=== PATIENT | male | born 1960 | race Caucasian/White ===

== ENCOUNTER → 2017-08-17 07:53 | Outpatient (CLI) | payer BC, SELFPAY ==
[2017-08-17 08:34] LABS: Hemoglobin A1C 6.3 % (0.0-7.0)
[2017-08-17 09:04] LABS: Alanine Aminotransferase 40 U/L (12-78); Albumin Level 3.9 gm/dL (3.4-5.0); Albumin/Globulin Ratio 1.1 (1.1-1.8); Alkaline Phosphatase 73 U/L (46-116); Anion Gap 12.3 mEq/L (5-15); Aspartate Amino Transferase 24 U/L (15-37); Bilirubin,Total 0.4 mg/dL (0.2-1.0); Blood Urea Nitrogen 15 mg/dL (7-18); Carbon Dioxide 27 mmol/L (21.0-32.0); Chloride 102 mmol/L (98-107); Chol/HDL Ratio 6.1 (1-3.5); Cholesterol 227 mg/dL (140-200); Creatinine,Serum 1.02 mg/dL (0.70-1.30); Estimated Glomerular Filt Rate > 60 ml/min (>60); GFR (African American) > 60 ML/MIN (>60); Globulin 3.4 gm/dl (1.3-3.2); Glucose 124 mg/dL (74-106); HDL Cholesterol 37 mg/dL (27-67); LDL Cholesterol 115 mg/dL (0-130); Potassium 4.3 mmoL/L (3.5-5.1); Sodium 137 mmol/L (136-145); Thyroid Stimulating Hormone 2.37 uIU/ml (0.358-3.740); Total Protein,Serum 7.3 gm/dL (6.4-8.2); Triglycerides 373 mg/dL (30-200); VLDL Cholesterol 75 mg/dL (0-40)
[2017-08-21 21:44] LABS: Creatinine, Urine 55.7 mg/dL (Not Estab.); Microalbumin, Urine 28.4 ug/mL (Not Estab.)
== END ==
PROVIDERS: PCP Family Medicine; Visit Provider Family Medicine
DX: E11.9 Type 2 diabetes mellitus without complications (principal); E78.2 Mixed hyperlipidemia
CPT/HCPCS: 36415; 80053; 80061; 82043; 83036; 84443

== ENCOUNTER → 2018-07-23 07:33 | Outpatient (CLI) | payer BC, SELFPAY ==
[2018-07-23 08:44] LABS: Hemoglobin A1C 6.2 % (0.0-7.0)
[2018-07-23 08:49] LABS: Creatinine,Urine Random 58 mg/dL (20-320)
[2018-07-23 09:05] LABS: Alanine Aminotransferase 49 U/L (12-78); Albumin Level 3.9 gm/dL (3.4-5.0); Albumin/Globulin Ratio 1.1 (1.1-1.8); Alkaline Phosphatase 85 U/L (46-116); Anion Gap 14.4 mEq/L (5-15); Aspartate Amino Transferase 21 U/L (15-37); Bilirubin,Total 0.4 mg/dL (0.2-1.0); Blood Urea Nitrogen 15 mg/dL (7-18); Carbon Dioxide 26 mmol/L (21.0-32.0); Chloride 104 mmol/L (98-107); Chol/HDL Ratio 4.3 (1-3.5); Cholesterol 153 mg/dL (140-200); Creatinine,Serum 0.92 mg/dL (0.70-1.30); Estimated Glomerular Filt Rate 85 ml/min (>60); GFR (African American) 103 ML/MIN (>60); Globulin 3.4 gm/dl (1.3-3.2); Glucose 127 mg/dL (74-106); HDL Cholesterol 36 mg/dL (27-67); LDL Cholesterol 59 mg/dL (0-130); Potassium 4.4 mmoL/L (3.5-5.1); Sodium 140 mmol/L (136-145); Thyroid Stimulating Hormone 2.17 uIU/ml (0.358-3.740); Total Protein,Serum 7.3 gm/dL (6.4-8.2); Triglycerides 289 mg/dL (30-200); VLDL Cholesterol 58 mg/dL (0-40)
[2018-07-24 10:41] LABS: Microalbumin, Urine 25.6 ug/mL (Not Estab.)
== END ==
PROVIDERS: Visit Provider Family Medicine
DX: E11.9 Type 2 diabetes mellitus without complications (principal); E78.2 Mixed hyperlipidemia
CPT/HCPCS: 36415; 80053; 80061; 82043; 82570; 83036; 84443

== ENCOUNTER → 2019-08-27 08:01 | Outpatient (CLI) | payer BC, SELFPAY ==
[2019-08-27 11:26] LABS: Alanine Aminotransferase 38 U/L (12-78); Albumin Level 3.6 gm/dL (3.4-5.0); Albumin/Globulin Ratio 1.1 (1.1-1.8); Alkaline Phosphatase 73 U/L (46-116); Amylase 14 U/L (25-115); Anion Gap 11.7 mEq/L (5-15); Bilirubin,Total 0.3 mg/dL (0.2-1.0); Blood Urea Nitrogen 16 mg/dL (7-18); Calcium 9.1 mg/dL (8.5-10.1); Carbon Dioxide 29 mmol/L (21.0-32.0); Chloride 100 mmol/L (98-107); Chol/HDL Ratio 3.5 (1-3.5); Cholesterol 133 mg/dL (140-200); Creatinine,Serum 0.91 mg/dL (0.70-1.30); Estimated Glomerular Filt Rate 86 ml/min (>60); GFR (African American) 104 ML/MIN (>60); Globulin 3.3 gm/dl (1.3-3.2); Glucose 115 mg/dL (74-106); HDL Cholesterol 38 mg/dL (27-67); LDL Cholesterol 53 mg/dL (0-130); Lipase 107 u/L (73-393); Potassium 4.7 mmoL/L (3.5-5.1); Sodium 136 mmol/L (136-145); Thyroid Stimulating Hormone 2.85 uIU/ml (0.358-3.740); Total Protein,Serum 6.9 gm/dL (6.4-8.2); Triglycerides 208 mg/dL (30-200); VLDL Cholesterol 42 mg/dL (0-40)
[2019-08-27 11:59] LABS: Aspartate Amino Transferase 30 U/L (15-37)
[2019-08-28 12:40] LABS: Microalbumin, Urine 52.9 ug/mL (Not Estab.)
== END ==
PROVIDERS: Visit Provider Family Medicine
DX: E11.9 Type 2 diabetes mellitus without complications (principal); E78.2 Mixed hyperlipidemia; R10.13 Epigastric pain
CPT/HCPCS: 36415; 80053; 80061; 82043; 82150; 82570; 83690; 84443

== ENCOUNTER → 2019-09-01 09:15 | Outpatient (CLI) | payer BC, SELFPAY ==
--- NOTE | 2019-09-01 09:23 | US_ITS ---
PROCEDURE: US ABDOMEN LIMITED CLINICAL INDICATION: EPIGASTRIC PAIN COMPARISON: No exams were available for comparison FINDINGS: PANCREAS: Unremarkable. No obvious mass or abnormal fluid collection. No ductal dilatation LIVER: There is diffuse fatty infiltration of the liver without a focal lesion. The there is no biliary ductal dilatation RIGHT KIDNEY: A 2.1 centimeter cortical cyst of the upper pole of the right kidney is noted. There is no solid renal lesion or obstruction. GALLBLADDER: There is cholelithiasis with up to 4.5 millimeters wall thickening of the gallbladder. Acute versus chronic cholecystitis should be considered. Radionuclide HIDA scan may be useful to further evaluate this patient. Common bile duct measures 2.5 millimeters. IMPRESSION: Cholelithiasis with gallbladder wall thickening consistent with acute versus chronic cholecystitis. Fatty infiltration of the liver. Dictated by: Yvon Nelson 09/01/2019 13:18 Electronically signed by Yvon Nelson in [place] 09/01/2019 13:18
== END ==
PROVIDERS: PCP Family Medicine; Visit Provider Family Medicine
DX: R10.13 Epigastric pain (principal)
CPT/HCPCS: 76705

== ENCOUNTER 2019-09-18 11:15 | Outpatient (RCR) | payer BC, SELFPAY | END 2019-09-18 11:45 | disposition home or self-care (01) | LOC: PT 11:15 | PROVIDERS: Visit Provider Family Medicine | DX: S83.411A Sprain of medial collateral ligament of right knee, initial encounter (principal) | CPT/HCPCS: 97760 ==

== ENCOUNTER → 2021-07-14 16:22 | Outpatient (CLI) | payer BC, SELFPAY | PROVIDERS: PCP Family Medicine; Visit Provider Nurse Practitioner | DX: U07.1 COVID-19 (principal) | CPT/HCPCS: C9803; U0003; U0005 ==

== ENCOUNTER → 2021-08-16 07:19 | Outpatient (CLI) | payer BC, SELFPAY ==
[2021-08-16 08:13] LABS: Alanine Aminotransferase 48 U/L (12-78); Albumin Level 4.5 g/dl (3.5-5.0); Albumin/Globulin Ratio 1.6 (1.1-1.8); Alkaline Phosphatase 57 U/L (38-126); Anion Gap 11.6 mEq/L (5-15); Aspartate Amino Transferase 42 U/L (17-59); Bilirubin,Total 0.6 mg/dl (0.2-1.3); Blood Urea Nitrogen 16 mg/dl (9-20); Calcium 9.3 mg/dl (8.4-10.2); Carbon Dioxide 30 mmol/L (22.0-30.0); Chloride 100 mmol/L (98-107); Cholesterol 160 mg/dl (140-200); Estimated Glomerular Filt Rate 87 ml/min (>60); GFR (African American) 105 ML/MIN (>60); Globulin 2.8 g/dL (1.3-3.2); Glucose 143 mg/dl (74-100); HDL Cholesterol 40 mg/dl (40-60); Potassium 4.6 mmoL/L (3.5-5.1); Sodium 137 mmol/L (136-145); Total Protein,Serum 7.3 g/dl (6.3-8.2); Triglycerides 241 mg/dl (30-150); VLDL Cholesterol 48 mg/dL (0-40)
[2021-08-16 08:17] LABS: Creatinine,Urine Random 65 mg/dL (Not Estab.)
[2021-08-16 08:21] LABS: Microalbumin/Creatinine Ratio 52.6
[2021-08-16 08:24] LABS: Direct LDL Cholesterol 87.23 mg/dL (100-129)
[2021-08-16 08:43] LABS: Thyroid Stimulating Hormone 4.94 uIU/mL (0.465-4.68)
[2021-08-16 09:33] LABS: Hemoglobin A1C 6.8 % (4.0-6.0)
== END ==
PROVIDERS: Visit Provider Family Medicine
DX: E11.9 Type 2 diabetes mellitus without complications (principal); E78.2 Mixed hyperlipidemia; Z79.84 Long term (current) use of oral hypoglycemic drugs
CPT/HCPCS: 36415; 80053; 80061; 82043; 82570; 83036; 84443

== ENCOUNTER → 2023-05-28 13:37 | Outpatient (CLI) | payer BC, SELFPAY ==
[2023-05-28 13:44] LABS: Adenovirus,PCR Not Detected (NotDetected); Coronavirus 19, PCR Not Detected (NotDetected); Coronavirus 229E Not Detected (NotDetected); Coronavirus NL63 Not Detected (NotDetected); Coronavirus OC43 Not Detected (NotDetected); Coronovirus HKU1,PCR Not Detected (NotDetected); Human Metapneumovirus Not Detected (NotDetected); Influenza A, PCR Not Detected (NotDetected); Influenza AH1, 2009 Not Detected (NotDetected); Influenza AH1, PCR Not Detected (NotDetected); Influenza AH3,PCR Not Detected (NotDetected); Influenza B, PCR Not Detected (NotDetected); Parainfluenza 1, PCR Not Detected (NotDetected); Parainfluenza 2, PCR Not Detected (NotDetected); Parainfluenza 3, PCR Not Detected (NotDetected); Parainfluenza 4, PCR Not Detected (NotDetected); Respiratory Syncytial Virus Not Detected (NotDetected); Rhinovirus/Enterovirus Not Detected (NotDetected)
== END ==
PROVIDERS: PCP Family Medicine; Visit Provider Family Medicine
DX: J06.9 Acute upper respiratory infection, unspecified (principal)
CPT/HCPCS: 87632; 87635

== ENCOUNTER → 2023-06-04 11:47 | Outpatient (CLI) | payer BC, SELFPAY ==
[2023-06-04 12:43] LABS: Basophils # 0.1 K/mm3 (0-0.2); Basophils % 1.1 % (0.1-2.0); Eosinophils # 0.2 K/mm3 (0.0-0.4); Eosinophils % 2.3 % (0.1-12.0); Hematocrit 47.4 % (42.0-52.0); Hemoglobin 16.5 g/dL (14.1-18.0); Lymphocytes % 26.2 % (10-50); Mean Corpuscular HGB Conc 34.8 g/dL (31.8-35.4); Mean Corpuscular Hemoglobin 34.3 pg (27.0-31.2); Mean Corpuscular Volume 98.8 fl (80-94); Mean Platelet Volume 10.5 fl (7.4-10.4); Monocytes # 0.7 K/mm3 (0.1-1.0); Monocytes % 8.6 % (1.7-9.3); Neutrophils # 4.8 K/mm3 (1.8-7.8); Neutrophils % 61.8 % (37.0-80.0); Platelet Count 229 K/mm3 (142-424); Red Cell Distribution Width 15.6 % (11.5-17.5); White Blood Count 7.8 K/mm3 (4.8-10.8)
[2023-06-04 12:51] LABS: Activated Partial Thrombo Time 33.3 seconds (22.8-30.6); Prothrombin Time 10.8 seconds (10.1-12.5)
[2023-06-04 13:06] LABS: Hemoglobin A1C 6.4 % (4.0-6.0)
[2023-06-04 13:30] LABS: Chloride 103 mmol/L (98-107); Potassium 4.5 mmoL/L (3.5-5.1); Sodium 133 mmol/L (136-145)
[2023-06-04 13:32] LABS: Amylase 48 U/L (30-110); Blood Urea Nitrogen 16 mg/dl (9-20); Estimated Glomerular Filt Rate 99 ml/min (>60); GFR (African American) 119 ML/MIN (>60)
[2023-06-04 13:33] LABS: Albumin Level 3.6 g/dl (3.5-5.0); Alkaline Phosphatase 533 U/L (38-126); Anion Gap 12.5 mEq/L (5-15); Bilirubin,Total 12.7 mg/dl (0.2-1.3); Calcium 8.6 mg/dl (8.4-10.2); Carbon Dioxide 22 mmol/L (22.0-30.0); Globulin 3.7 g/dL (1.3-3.2); Glucose 178 mg/dl (74-100); Lipase 474 U/L (23-300); Total Protein,Serum 7.3 g/dl (6.3-8.2)
[2023-06-04 14:55] LABS: 25-OH Vitamin D, Total 51.6 ng/mL (30-100)
[2023-06-04 14:56] LABS: Alanine Aminotransferase 2247 U/L (12-78)
[2023-06-04 15:37] LABS: Vitamin B12 983 pg/mL (239-931)
[2023-06-04 15:40] LABS: Aspartate Amino Transferase 3000 U/L (17-59)
[2023-06-06 05:36] LABS: HBsAg Screen Positive (Negative); HCV Ab Non Reactive (Non Reactive); Hep A Ab, IGM Negative (Negative); Hep B Core Ab, IgM Positive (Negative)
== END ==
PROVIDERS: PCP Family Medicine; Visit Provider Family Medicine
DX: R53.83 Other fatigue (principal); R17 Unspecified jaundice; K80.20 Calculus of gallbladder without cholecystitis without obstruction; E11.9 Type 2 diabetes mellitus without complications; E66.9 Obesity, unspecified; Z68.33 Body mass index [BMI] 33.0-33.9, adult; Z79.84 Long term (current) use of oral hypoglycemic drugs
CPT/HCPCS: 36415; 80053; 80074; 82150; 82306; 82607; 83036; 83690; 85025; 85610; 85730

== ENCOUNTER → 2023-06-07 08:01 | Outpatient (CLI) | payer BC, SELFPAY ==
--- NOTE | 2023-06-07 08:08 | CT_ITS ---
FINAL REPORT CLINICAL HISTORY: JAUNDICE,ELEVATED LFT,ELEVATED LIPASE COMPARISON: None FINDINGS: CT OF THE ABDOMEN AND PELVIS WITH CONTRAST Axial CT images of the abdomen and pelvis were obtained after the administration of IV contrast. Coronal and sagittal reformatted images were also obtained and reviewed. This study was performed with techniques to keep radiation doses as low as reasonably achievable (ALARA). Individualized dose reduction techniques using automated exposure control or adjustment of mA and/or kV according to the patient's size were employed. Abdomen: The lung bases are clear. The heart is normal in size. Fatty infiltration of the liver is present. There is a less than 1 cm right hepatic low-density, which is not accurately characterized without intravenous contrast administration, but may represent a hepatic cyst. There is a large gallstone in the gallbladder with mild wall thickening, cholecystitis not excluded. There are several mildly enlarged portal and portocaval nodes, that are nonspecific but may be reactive. The spleen is unremarkable. No adrenal mass is present. The pancreas has an unremarkable appearance. Bilateral renal cysts are present. The aorta is normal in caliber. There is no free fluid or adenopathy. No mass or abnormal fluid collection is seen. Pelvis: The appendix is not well-visualized. The urinary bladder is unremarkable. There is diverticulosis of the sigmoid colon without evidence of acute inflammatory change. There is also wall thickening at the junction of the rectum and sigmoid colon, which may be secondary to inflammatory change or neoplasm. There is no evidence of mass or adenopathy. There is no evidence of bowel obstruction. There is a small umbilical hernia containing fat. There are bilateral inguinal hernias, small, that also contain fat. IMPRESSION: Large gallstone with mild wall thickening of the gallbladder, and cholecystitis is not excluded. Several mildly enlarged portal and portocaval nodes, nonspecific but may be reactive. There is wall thickening at the junction of the rectum and sigmoid colon, that may be inflammatory or neoplastic, and would correlate with colonoscopy. There is a less than 1 cm right hepatic lobe density, which may represent a cyst although this lesion is not accurately characterized without use of intravenous contrast. Reviewed, Interpreted and Dictated by Juan Luis Rubi III, MD Transcribed by Mavis Gauthier Authenticated and [facility]
== END ==
PROVIDERS: PCP Family Medicine; Visit Provider Family Medicine
DX: R17 Unspecified jaundice (principal); R79.89 Other specified abnormal findings of blood chemistry; R74.8 Abnormal levels of other serum enzymes
CPT/HCPCS: 74177; Q9967

== ENCOUNTER 2023-12-13 07:45 | Outpatient (CLI) | payer OTHER, SELFPAY ==
--- NOTE | 2023-12-13 07:52 | US_ITS ---
FINAL REPORT TECHNIQUE: Multiple transverse and longitudinal images CLINICAL HISTORY: VIRAL HEPATITIS B W/O HEPATIC COMA FINDINGS: There is a dominant gallstone in the proximal gallbladder measuring 23 mm. No acute gallbladder disease is identified. No biliary ductal dilatation is appreciated. No fluid collections are seen. Limited portions of the right liver are unremarkable. There is a small right renal cyst. There is no hydronephrosis. IMPRESSION: Cholelithiasis. Unremarkable liver. Reviewed, Interpreted and Dictated by Irene Garcia MD Transcribed by Brandee Retana Authenticated and [facility]
== END 2023-12-13 23:59 | disposition home or self-care (01) ==
LOC: RAD 07:46
PROVIDERS: PCP Family Medicine; Visit Provider Internal Medicine
DX: B19.10 Unspecified viral hepatitis B without hepatic coma (principal); K80.80 Other cholelithiasis without obstruction
CPT/HCPCS: 76705